=== PATIENT | male | born 1965 | race Caucasian/White ===

== ENCOUNTER 2022-06-30 09:44 | Emergency (ER) | payer BC ==
--- OUTSIDE RECORDS SUMMARY | 2022-06-30 09:47 | XMS REPORT | Continuity of Care Document ---
:1965 Author Organization [facility] t Address [address] [facility] [address] [place] [id number] Care Team Providers Name Role Phone KYRA Attending Clinician Unavailable CHITRA Attending Clinician Unavailable Marly Aguero Attending Clinician [phone] ANTIONE Attending Clinician Unavailable KYRA Admitting Clinician Unavailable CHITRA Admitting Clinician Unavailable ANTIONE Admitting Clinician Unavailable Payers Payer Name Policy Type Policy Number Effective Date Expiration Date S ource [place] [id number] 2019 00:[place]:00 [place] Problems Condition Condition Condition Status Onset Resolution Last Treating Co mments Source Name Details Category Date Date Treatment Clinician Date Sleep Sleep Problem Active [facility] apnea Apnea 2-10 Communi 00:00: ty 00 [facility] Allergies, Adverse Reactions, Alerts This patient has no known allergies or adverse reactions. Social History Smoking Status Start Date Stop Date Source Heavy Tobacco Smoker [facility] Medications Ordered Filled Start Stop Current Ordering Indication Dosage Frequency Signature Comments Components Source Medication Medication Date Date Medication? Clinician (SIG) Name Name atenolol 50 atenolol 50 No 1 Q1D atenolol [place] mg-chlortha mg-chlortha 50 C [facility]i lidone 25 lidone 25 mg-chlorth ty mg tablet mg tablet alidone 25 Hospita Take 1 Take 1 mg tablet l tablet tablet Take 1 Clinics every day every day tablet by oral by oral every day route for route for by oral 90 days. 90 days. route for 90 days. azithromyci azithromyci No 1 Q1D azithromyc [place] n 500 mg n 500 mg in 500 mg Co mmuni tablet Take tablet Take tablet ty 1 tablet 1 tablet Take 1 Hospi ta every day every day tablet l by oral by oral every day Clin ics route for 5 route for 5 by oral days. days. route for 5 days. Immunizations Ordered Immunization Filled Immunization Date Status Commen ts Source Name Name Hep B, adult Hep B, adult 2019-11-19 Completed [place] 14:26:41 [facility] Vital Signs Vital Name Observation Time Observation Value Comments Source BP Diastolic 2021-05-19 00:00:00 101 mm[Hg] [facility] BP Systolic 2021-05-19 00:00:00 143 mm[Hg] [facility] Body Weight 2021-05-19 00:00:00 3667.2 [oz_av] [facility] Procedures Procedure Date / Time Performed Performing Clinician [facility] e LDCT, chest, for lung 2021-05-19 00:00:00 [facility] cancer screening [facility] s polysomnogram, w/ 2021-05-19 00:00:00 [facility] initiation of bi-level Hospital Clinics ventilation Plan of Care Planned Activity Planned Date Details Comments Source Diagnostic Test 2021-05-19 PSA, serum or plasma [facility] Pending 00:00:00 [code = PSA, serum or Hospit al Clinics plasma] Diagnostic Test 2021-05-19 CBC w/ auto diff [facility] Pending 00:00:00 [code = CBC w/ auto [facility] diff] Diagnostic Test 2021-05-19 CMP, serum or plasma [facility] Pending 00:00:00 [code = CMP, serum or Hospit al [facility] plasma] Diagnostic Test 2021-05-19 lipid panel w/ direct [facility] hospital Pending 00:00:00 LDL, serum [code = Hospital Clinics lipid panel w/ direct LDL, serum] Diagnostic Test 2021-05-19 TSH + free T4, serum [facility] Pending 00:00:00 [code = TSH + free [facility] T4, serum] Diagnostic Test 2021-05-19 vitamin D, [facility] Pending 00:00:00 25-hydroxy, total, [facility] serum [code = vitamin D, 25-hydroxy, total, serum] Diagnostic Test 2021-05-19 SARS CoV 2 IgG Ab, QN [facility] hospital Pending 00:00:00 IA, serum or plasma Hospital Clinics [code = SARS CoV 2 IgG Ab, QN [place], serum or plasma] Diagnostic Test 2021-05-19 rapid influenza virus Critical [facility] hospital Pending 00:00:00 A + B [facility] SARS CoV 2 Ag panel, [place], upper respiratory specimen [code = rapid influenza virus A + B and SARS CoV + SARS CoV 2 Ag panel, [place], upper respiratory specimen] Diagnostic Test 2021-05-19 lipid panel, blood [facility] Pending 00:00:00 [code = lipid panel, [facility] blood] Diagnostic Test 2021-05-19 PTH (parathyroid [facility] Pending 00:00:00 hormone), intact, Hospital C linics serum or plasma [code = PTH (parathyroid hormone), intact, serum or plasma] Diagnostic Test 2021-05-19 noninvasive [facility] Pending 00:00:00 colorectal cancer DNA [facility] + occult blood screening, QL, stool [code = noninvasive colorectal cancer DNA + occult blood screening, QL, stool] Encounters Start End Encounter Admission Attending Care Care Encounter Source Date/Time Date/Time Type Type Clinicians Facility Department ID 2021-09-07 2021-09-07 Outpatient CHRETIEN_F [facility] [id number] [place] 10:41:00 10:41:00 0601 [facility] 2021-09-07 2021-09-07 Outpatient CHRETIEN_F [facility] [id number] [place] 10:41:00 10:41:00 0715 Commun i ty [facility]osp[facility] Clinics 2021-08-19 2021-08-19 Outpatient WATERS_S [facility] [id number] [place] 06:43:00 06:43:00 0513 Commun i ty Hospita [facility] Clinics 2021-05-19 2021-05-19 Outpatient WATERS_S [facility] [id number] [place] 11:10:00 11:10:00 0210 Commun i ty Hospita l Clinics 2021-05-19 2021-05-19 [facility] [place] - [place] 00:00:00 00:00:[address] [facility] MEDICAL ACCOUNTING CLERK-KAIAWHINA-C: Hospital - ty [address] [facility], [facility] [address], [place] [address] , Ph. 2021-05-19 2021-05-19 Outpatient More [facility] [id number] 00:00:00 00:00:00 Marly [id number] 2021-05-10 2021-05-10 Outpatient CHITRA [facility] [id number] [place] 11:40:00 11:40:00 0201 [facility] i [facility] 2020-03-01 2020-03-01 Outpatient [facility] [id number] [place] 01:02:00 01:02:00 [id number] 2020-02-23 2020-02-23 Outpatient [facility] [id number] [place] 05:57:00 05:57:00 [id number] [facility] 2019-12-30 2019-12-30 Outpatient [facility] [id number] [place] 01:54:00 01:54:00 [id number] [facility] 2019-12-01 2019-12-01 Outpatient [facility] [id number] [place] 11:52:00 11:52:00 [id number] [facility] 2019-11-19 2019-11-19 Outpatient [facility] [id number] [place] 03:27:00 03:27:00 [id number] [facility] 2019-11-19 2019-11-19 [facility] [place] - [id number] [place] 00:00:00 00:00:00 Octaviano Marrufo MD: [address] [facility] ora [place], [place], [place] Out[place] [id number] h , Ph. Program 2019-08-29 2019-08-29 Outpatient [facility] [id number] [place] 12:56:00 12:56:00 [id number] da [facility] 2019-08-19 2019-08-19 Outpatient [facility] [id number] [place] 03:16:00 03:16:00 [id number] da [facility] 2019-07-15 2019-07-15 Outpatient [facility] [id number] [place] 04:14:00 04:14:00 [id number] da [facility] Results This patient has no known results.
--- NOTE | 2022-06-30 11:40 | RAD REPORT ---
EXAM DESCRIPTION: RAD - Tib Fib Left - 06/30/2022 11:05 am CLINICAL HISTORY: injury, pain COMPARISON: No comparisons FINDINGS: Lateral fibular sideplate is present. No hardware complication. No fracture, dislocation o r radiopaque foreign body seen.
--- NOTE | 2022-06-30 12:18 | EDPHYS ---
Physician Documentation [facility] Name: Abhilash Arenas Age: 56 yrs Sex: Male : 1965 Arrival Date: 06/30/2022 Time: 09:50 Bed 10 Private MD: ED Physician Lele Dietrich HPI: 06/30 12:16 This 56 yrs old Male presents to ER via Ambulatory with complaints of Ankle Injury. [facility] 14:22 The patient presents with an injury, pain, that is acute. Onset: The symptoms/episode jmm began/occurred acutely, 2 day(s) ago. Is a 56-year-old male with a history of sleep apnea that presents emerged part with complaints of left lower leg pain which radiates up his calf. Patient states he scratched his leg against a piece of wood and is concerned he may have a splinter but has been unable to take out.. Historical: - Allergies: 10:08 No Known Allergies; jl7 - Home Meds: 10:08 None [Active]; jl7 - PMHx: 10:08 Sleep Apnea; jl7 - PSHx: 10:08 right ankle; jl7 - Immunization history:: Adult Immunizations not up to date. - Social history:: Smoking status: Patient reports the use of cigarette tobacco products, smokes one pack cigarettes per day. Patient uses alcohol, on a daily basis. "Couple of drinks.". ROS: 14:22 Constitutional: Negative for fever, chills, and weight loss, Cardiovascular: Negative jmm for chest pain, palpitations, and edema, Respiratory: Negative for shortness of breath, cough, wheezing, and pleuritic chest pain. 14:22 MS/extremity: Positive for injury or acute deformity, erythema, pain. 14:22 All other systems are negative. Exam: 14:22 Constitutional: This is a well developed, well nourished patient who is awake, alert, jmm and in no acute distress. Head/Face: atraumatic. Eyes: EOMI, no conjunctival erythema appreciated ENT: Moist Mucus Membranes Neck: Trachea midline, Supple Chest/axilla: Normal chest wall appearance and motion. Cardiovascular: Regular rate and rhythm. No edema appreciated Respiratory: Normal respirations, no respiratory distress appreciated Abdomen/GI: Non distended Back: Normal ROM 14:22 Musculoskeletal/extremity: Full range of motion appreciated to left ankle, compartments are soft, full dorsalis pedis pulse, neurovascular intact. 14:22 Skin: Erythema noted to the left lower leg posteriorly. 14:22 Neuro: Orientation: is normal, Mentation: is normal, Memory: is normal. 14:22 Psych: Behavior/mood is pleasant, cooperative. Vital Signs: 10:06 BP 119 / 89; Pulse 79; Resp 17; Temp 98.1; Pulse Ox 98% ; Weight 97.52 kg; Height 6 ft. jl7 0 in. ; Pain 0/10; 10:06 Body Mass Index 29.16 (97.52 kg, 182.88 cm) 7 10:06 Pain Scale: Adult jl Procedures: 14:24 Performed Foreign body removal. The wound was cleaned with Betadine. 5 mL 1% lidocaine [facility] was injected. Good anesthesia was achieved. 11 blade used to make a small incision, wound was explored. No foreign body appreciated.. MDM: 10:11 Patient medically screened. [facility] 14:24 Differential diagnosis: fracture, sprain, foreign body. Data reviewed: vital signs, [facility] nurses notes, radiologic studies, plain films. I considered the following discharge prescriptions or medication management in the emergency department Medications were administered in the Emergency Department. See MAR. Independent interpretation of the following test(s) in the Emergency Department X-Ray: My interpretation is No fracture appreciated. Counseling: I had a detailed discussion with the patient and/or guardian regarding: the historical points, exam findings, and any diagnostic results supporting the discharge/admit diagnosis, radiology results, the need for outpatient follow up, to return to the emergency department if symptoms worsen or persist or if there are any questions or concerns that arise at home. 06/30 10:12 Order name: Tib Fib Left XRAY; Complete Time: 11:45 [facility] Administered Medications: 11:45 Drug: Lidocaine Infiltration (1 %) 1 application Volume: 20 ml; Route: Infiltration; [facility] 11:45 Follow up: administered by MAYTE Villagran [facility] 12:40 Follow up: Response: No adverse reaction [facility] Disposition: 14:47 Co-signature as Attending Physician, Lele Dietrich MD I reviewed the patient's care rt provided by the Advanced Practice Provider and agree with the diagnosis and treatment plan. Disposition Summary: 06/30/22 12:18 Discharge Ordered Location: Home jmm Condition: Stable [facility] Diagnosis - Cellulitis of the left lower extremity [facility] Followup: m - With: Private Physician - When: 2 - 3 days - Reason: Recheck today's complaints, Continuance of care, Re-evaluation by your physician Followup: [place] - With: Anthony Farooq DPM - When: 2 - 3 days - Reason: Recheck today's complaints, Continuance of care, Re-evaluation by your physician Discharge Instructions: - Discharge Summary Sheet [facility] - Cellulitis, Adult [facility] Forms: - Medication Reconciliation Form [facility] - Thank You Letter [facility] - Antibiotic Education [facility] - Prescription Opioid Use [facility] Prescriptions: - Cephalexin 500 mg Oral Capsule - take 1 capsule by ORAL route every 6 hours for 10 days; 40 capsule; Refills: 0, [facility] Product Selection Permitted - Doxycycline Hyclate 100 mg Oral Tablet - take 1 tablet by ORAL route every 12 hours; 20 tablet; Refills: 0, Product [facility] Selection Permitted Signatures: Dispatcher [employer] EDTyshawn Flores PA PA jmm Leal, Jahala, RN RN jl7 Lele Dietrich MD MD rt
--- NOTE | 2022-06-30 12:18 | ER ---
[facility] Name: Abhilash Arenas Age: 56 yrs Sex: Male : 1965 Arrival Date: 06/30/2022 Time: 09:50 Bed 10 Private MD: Diagnosis: Cellulitis of the left lower extremity Presentation: 06/30 10:06 Chief complaint: Patient states: Stepped in a hole 2 days ago and hurt left ankle, jl7 reports might be a splinter or something in it, hurts with ambulating. Coronavirus screen: At this time, the client does not indicate any symptoms associated with coronavirus-19. Ebola Screen: No symptoms or risks identified at this time. Initial Sepsis Screen: Does the patient meet any 2 criteria? No. Patient's initial sepsis screen is negative. Does the patient have a suspected source of infection? No. Patient's initial sepsis screen is negative. Risk Assessment: Do you want to hurt yourself or someone else? Patient reports no desire to harm self or others. Onset of symptoms was June 28, 2022. 10:06 Method Of Arrival: Ambulatory jl7 10:06 Acuity: ALBERTO 4 jl7 Triage Assessment: 10:08 General: Appears in no apparent distress. uncomfortable, Behavior is calm, cooperative, jl7 appropriate for age. Pain: Complains of pain in left Achilles Pain currently is 0 out of 10 on a pain scale. at worst was 8 out of 10 on a pain scale. Musculoskeletal: Swelling present in left Achilles. Historical: - Allergies: 10:08 No Known Allergies; jl7 - Home Meds: 10:08 None [Active]; jl7 - PMHx: 10:08 Sleep Apnea; jl7 - PSHx: 10:08 right ankle; jl7 - Immunization history:: Adult Immunizations not up to date. - Social history:: Smoking status: Patient reports the use of cigarette tobacco products, smokes one pack cigarettes per day. Patient uses alcohol, on a daily basis. "Couple of drinks.". Screenin:45 [facility] ED Fall Risk Assessment (Adult) History of falling in the last 3 months, jl7 including since admission Yes- single mechanical fall (1 pt) Confusion or Disorientation No (0 pts) Intoxicated or Sedated No (0 pts) Impaired Gait No (0 pts) Mobility Assist Device Used Yes (1 pt) Altered Elimination No (0 pt) Score/Fall Risk Level 0 - 2 = Low Risk Oriented to surroundings, Maintained a safe environment, Educated pt \\T\\ family on fall prevention, incl call for assistance when getting out of bed. Abuse screen: Denies threats or abuse. Denies injuries from another. Nutritional screening: No deficits noted. Tuberculosis screening: No symptoms or risk factors identified. Vital Signs: 10:06 BP 119 / 89; Pulse 79; Resp 17; Temp 98.1; Pulse Ox 98% ; Weight 97.52 kg; Height 6 ft. jl7 0 in. ; Pain 0/10; 10:06 Body Mass Index 29.16 (97.52 kg, 182.88 cm) jl7 10:06 Pain Scale: Adult [facility] emergency room ED Course: 09:50 Patient arrived in ED. mr 09:50 Tyshawn Edgar PA is PHCP. [facility] 09:50 Lele Dietrich MD is Attending Physician. [facility] 10:08 Triage completed. jl7 10:08 Arm band placed on right wrist. jl7 11:07 Tib Fib Left XRAY In Process Unspecified. EDMS 11:45 Patient has correct armband on for positive identification. jl7 11:45 Assist provider with I \\T\\ D: of an abscess on. jl7 11:54 Fernandez Ferrari, YARA is Primary Nurse. jl7 12:19 Anthony Farooq DPM is Referral Physician. [facility] 12:39 Patient did not have IV access during this emergency room visit. jl7 Administered Medications: 11:45 Drug: Lidocaine Infiltration (1 %) 1 application Volume: 20 ml; Route: Infiltration; jl7 11:45 Follow up: administered by MAYTE Villagran jl 12:40 Follow up: Response: No adverse reaction jl Medication: 12:38 VIS not applicable for this client. jl7 Intake: Outcome: 12:18 Discharge ordered by . [facility] 12:39 Discharged to home ambulatory. jl7 12:39 Condition: stable 12:39 Discharge instructions given to patient, family, Instructed on discharge instructions, follow up and referral plans. medication usage, Demonstrated understanding of instructions, follow-up care, medications, Prescriptions given X 2. 12:41 Patient left the ED. [facility] emergency room Signatures: Dispatcher [employer] EDMS MickaTyshawn levine PA PA jmm Rivera, Mary mr Fernandez Ferrari, RN RN jl7
[2022-06-30 12:46] VITALS: BP 119/89; TEMP 98.1; O2SAT 98
== END 2022-06-30 12:41 | disposition home or self-care (01) ==
LOC: ER 09:44
PROC: 0HCLXZZ Extirpation of Matter from Left Lower Leg Skin, External Approach (ICD-10-PCS; principal; 2022-06-30)
DX: L03.116 Cellulitis of left lower limb (principal); F17.210 Nicotine dependence, cigarettes, uncomplicated
CPT/HCPCS: 99284